=== PATIENT | male | born 1995 | race American Indian/Alaskan Native ===

== ENCOUNTER 2018-08-25 09:11 | Emergency (ER) | payer OTHER ==
[2018-08-25] MEDS ORDERED: NACL 0.9% 1000 ML 1,000 ML IV ONE (11:11)
[2018-08-25] MEDS ORDERED: ZOFRAN IV ONE (11:11)
[2018-08-25] MEDS ORDERED: TORADOL IV ONE (11:11)
--- NOTE | 2018-08-25 11:15 | Emergency Department Report ---
Blank Doc - Documentation Documentation: 23-year-old male presents to ED with reports of right-sided abdominal pain, nausea, vomiting onset this morning. Patient stays underlying cholecystectomy approximately one year ago. States he has been dealing with chronic, intermittent nausea and vomiting since then, however, the abdominal pain is new. States pain is radiating over to the left side of abdomen as well. Patient denies fever. Denies alcohol use. On exam patient is actively vomiting , has diffuse abdominal tenderness, worse in right upper and lower quadrants. We will obtain labs, CT abdomen and pelvis. Will give IV fluids, pain meds, Zofran.
[2018-08-25 11:36] LABS: Basophils # (Auto) 0.1 K/mm3 (0.0-0.1); Basophils % (Auto) 0.7 % (0.0-1.8); Eosinophils % (Auto) 0.1 % (0.0-4.3); Hematocrit 48.3 % (35.5-45.6); Hemoglobin 16.4 gm/dl (11.8-15.2); Lymphocytes % (Auto) 7.1 % (13.4-35.0); Mean Corpuscular HGB Conc 34 % (32-34); Mean Corpuscular Hemoglobin 33 pg (28-32); Mean Corpuscular Volume 98 fl (84-94); Monocytes # (Auto) 1.1 K/mm3 (0.0-0.8); Monocytes % (Auto) 7.7 % (0.0-7.3); Platelet Count 229 K/mm3 (140-440); Red Blood Count 4.91 M/mm3 (3.65-5.03); Red Cell Distribution Width 12.6 % (13.2-15.2)
[2018-08-25 11:55] LABS: Alanine Aminotransferase 14 units/L (7-56); BUN/Creatinine Ratio 16; Blood Urea Nitrogen 11 mg/dL (9-20); Calcium 9.8 mg/dL (8.4-10.2); Hemolysis Index 9
--- NOTE | 2018-08-25 12:15 | Emergency Department Report ---
ED Abdominal Pain HPI - General Chief Complaint: Abdominal Pain Stated Complaint: N/V, ABD PAIN Time Seen by Provider: 08/25/18 11:10 Source: patient Mode of arrival: Ambulatory Limitations: No Limitations - History of Present Illness Initial Comments: Patient is an 3-year-old female that was recently screened by attending Dr. Jacques will his chair complaining of right-sided abdominal pain times this morning patient also states nausea, vomiting onset this morning. Patient mentions that he had a cholecystectomy approximately one year ago. States he has been dealing with chronic, intermittent nausea and vomiting since then, however, the abdominal pain is new. States pain is radiating over to the left side of abdomen as well. Patient denies fever. Denies alcohol use. He denies fevers/chills/diarrhea/constipation/shortness of breath or chest pain Severity scale (0 -10): 10 - Related Data Previous Rx's Medication Instructions Recorded Last Taken Type HYDROcodone/APAP 5-325 [[place] 1 each PO Q6HR PRN #20 tablet 08/25/18 Unknown Rx 5/325] Metoclopramide [Reglan] 10 mg PO TID #24 tab 08/25/18 Unknown Rx Allergies Allergy/AdvReac Type Severity Reaction Status Date / Time No Known Allergies Allergy Unverified 08/25/18 09:23 ED Review of Systems ROS: Stated complaint: N/V, ABD PAIN Other details as noted in HPI Constitutional: denies: chills, fever Eyes: denies: eye pain, eye discharge, vision change ENT: denies: ear pain, throat pain Respiratory: denies: cough, shortness of breath, wheezing Cardiovascular: denies: chest pain, palpitations Endocrine: no symptoms reported Gastrointestinal: denies: abdominal pain, nausea, diarrhea Genitourinary: denies: urgency, dysuria Musculoskeletal: denies: back pain, joint swelling, arthralgia Skin: denies: rash, lesions Neurological: denies: headache, weakness, paresthesias Psychiatric: denies: anxiety, depression Hematological/Lymphatic: denies: easy bleeding, easy bruising ED Past Medical Hx - Past Medical History Previous Medical History?: No - Surgical History Hx Cholecystectomy: Yes - Social History Smoking Status: Never Smoker Substance Use Type: None - Medications Home Medications: Home Medications Medication Instructions Recorded Confirmed Last Taken Type HYDROcodone/APAP 5-325 [[place] 1 each PO Q6HR PRN #20 tablet 08/25/18 Unknown Rx 5/325] Metoclopramide [Reglan] 10 mg PO TID #24 tab 08/25/18 Unknown Rx ED Physical Exam - General Limitations: No Limitations General appearance: alert, in no apparent distress - Head Head exam: Present: atraumatic, normocephalic - Eye Eye exam: Present: normal appearance - ENT ENT exam: Present: mucous membranes moist - Neck Neck exam: Present: normal inspection - Respiratory Respiratory exam: Present: normal lung sounds bilaterally. Absent: respiratory distress, wheezes - Cardiovascular Cardiovascular Exam: Present: regular rate, normal rhythm. Absent: systolic murmur, diastolic murmur, rubs, gallop - GI/Abdominal GI/Abdominal exam: Present: soft, tenderness (to palpation of right upper and lower quadrant, left quadrant tenderness as well.), guarding, normal bowel sounds, other (obturator sign negative). Absent: distended, rebound, rigid, organomegaly, mass, bruit, pulsatile mass - Rectal Rectal exam: Present: deferred - Extremities Exam Extremities exam: Present: normal inspection - Back Exam Back exam: Present: normal inspection - Neurological Exam Neurological exam: Present: alert, oriented X3 - Psychiatric Psychiatric exam: Present: normal affect, normal mood - Skin Skin exam: Present: warm, dry, intact, normal color. Absent: rash ED Course Vital Signs 08/25/18 08/25/18 09:23 17:31 Temperature 98.6 F Pulse Rate 72 74 Respiratory 18 18 Rate Blood Pressure 135/89 Blood Pressure 137/88 [Left] O2 Sat by Pulse 100 100 Oximetry - Reevaluation(s) Reevaluation #1: Upon reevaluation of patient patient states he still had mild nausea patient states her filling little bit better but still in some pain. CT scan unremarkable, discussed with patient. Awaiting urine urinalysis results. Reglan 10 mg ordered. 08/25/18 12:56 ED Medical Decision Making - Lab Data Result diagrams: 08/25/18 11:05 08/25/18 11:05 - Radiology Data Radiology results: report reviewed, image reviewed FINDINGS: Lung bases: Normal. Liver: Normal. Biliary system: Cholecystectomy. No biliary dilatation. Pancreas: Normal. Spleen: Normal. 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 No evidence for cystic disease, mass or obstruction. Normal ureters and bladder. Adrenal glands: Normal. Aorta: Normal. Dual IVCs are noted. Intestines: Within normal limits given no oral contrast was administered. Appendix: Not identified. Pelvic viscera: Normal. Ascites: None. Adenopathy: None. Musculoskeletal: Normal. IMPRESSION: No acute process is identified in the abdomen or pelvis. Cholecystectomy. Horseshoe kidney. Duplicated IVC. Transcribed By: TTR Dictated By: YOUNG LIGHT JR, MD Electronically Authenticated By: YOUNG LIGHT JR, MD Signed Date/Time: 08/25/18 1229 - Medical Decision Making 23-year-old male presents with a gastroenteritis/chronic inflammatory bowel disease ED course: Patient received 1 L of normal saline, Toradol, Zofran. Patient reports still feeling some pain and some nausea, 2 mg of morphine and 10 mg of Reglan was administered to patient about 2hours apart Consultation with Dr. Steiner attending surgeon who saw and examined the patient. CBC, BMP, urinalysis all within normal limit. Mild wbc's. Patient does not look ill. He looks well, He is in no respiratory distress. Nausea and Vomitting resolved Discussed follow-up with Gastrologist. CT Scan Reported above. Obturator test was negative. Patient's symptoms has been going on for over a year which also rules out appendicitis. Discussed patient underwent any worsening symptoms to return to ED immediately. [place] [facility] was given as a follow-up for patient. The patient looked and felt much better prior to discharge. Stable vitals - Differential Diagnosis 1. Appendicitis 2. IBD 3. Gastroenteritis 4. Malignancy Critical care attestation.: If time is entered above; I have spent that time in minutes in the direct care of this critically ill patient, excluding procedure time. ED Disposition Clinical Impression: Gastroenteritis, Noninfectious ileitis Disposition: DC-01 TO HOME OR SELFCARE Is pt being admited?: No Does the pt Need Aspirin: No Condition: Stable Instructions: Gastroenteritis (ED), Acute Nausea and Vomiting (ED), Capsule Endoscopy (GEN) Additional Instructions: Make sure to follow up with the primary care physician as discussed. Also follow-up with book publisher Take all your medications as you've been prescribed. If you have any worsening symptoms or develop new symptoms please return to ED immediately. Prescriptions: HYDROcodone/APAP 5-325 [[place] 5/325] 1 each PO Q6HR PRN #20 tablet PRN Reason: Pain Metoclopramide [Reglan] 10 mg PO TID #24 tab Referrals: PRIMARY CARE,MD [Primary Care Provider] - 3-5 Days [facility] [Provider Group] - 3-5 Days Forms: Work/School Release Form(ED)
--- NOTE | 2018-08-25 12:31 | Cat Scan Report ---
CT ABDOMEN PELVIS WITH CONTRAST: HISTORY: abdominal pain. COMPARISON: none. TECHNIQUE: Helical CT in 1.25mm intervals following IV contrast. Sagittal and coronal reconstructions. FINDINGS: Lung bases: Normal. Liver: Normal. Biliary system: Cholecystectomy. No biliary dilatation. Pancreas: Normal. Spleen: Normal. 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 No evidence for cystic disease, mass or obstruction. Normal ureters and bladder. Adrenal glands: Normal. Aorta: Normal. Dual IVCs are noted. Intestines: Within normal limits given no oral contrast was administered. Appendix: Not identified. Pelvic viscera: Normal. Ascites: None. Adenopathy: None. Musculoskeletal: Normal. IMPRESSION: No acute process is identified in the abdomen or pelvis. Cholecystectomy. Horseshoe kidney. Duplicated IVC.
[2018-08-25] MEDS ORDERED: REGLAN IV ONE (12:55)
[2018-08-25 13:45] LABS: Amorphous Crystals,Urine Few; Bilirubin,Urine NEG (Negative); Blood,Urine NEG (Negative); Color,Urine Amber (Yellow); Mucus,Urine 3+ /HPF; Urobilinogen,Urine < 2.0 mg/dL (<2.0)
[2018-08-25 13:48] LABS: RBC,Urine < 1.0 /HPF (0.0-6.0); WBC,Urine < 1.0 /HPF (0.0-6.0)
[2018-08-25] MEDS ORDERED: MORPHINE IV ONE (16:24)
[2018-08-25 17:32] VITALS: BP 137/88
--- NOTE | 2018-08-25 17:55 | Consultation ---
History of Present Illness Consult date: 08/25/18 Reason for consult: abdominal pain Requesting physician: EVANGELISTA ELLIOTT Chief complaint: abdominal pain - History of present illness History of present illness: 23yo otherwise healthy male presents with acute onset of abdominal pain, N/V today. General Surgery asked to see patient for possible appendicitis. Pt reports that he has been having intermittent pain like this since 2017. All the attacks are similar in character, but the intensity varies. Usually, they resolve with time. After his second attack, he was seen at [facility] and his GB was removed as the presumed cause. He continued to have similar intermittent pain, N/V episodes. The entire abdomen hurts. Has had F/C/N /V. No diarrhea or constipation. Has had bloody emesis in the past, but no blood /melena from below. Has lost 15-20lbs unintentionally since 2017. No change in oral intake. No known family history of GI disorders/IBD. Past History Past Medical History: No medical history Past Surgical History: cholecystectomy (lap gisselle - 2017 [facility]) Social history: denies: smoking, alcohol abuse (occasional use), prescription drug abuse, IV drug use Family history: no significant family history Medications and Allergies Allergies Allergy/AdvReac Type Severity Reaction Status Date / Time No Known Allergies Allergy Unverified 08/25/18 09:23 Home Medications Medication Instructions Recorded Confirmed Last Taken Type HYDROcodone/APAP 5-325 [[place] 1 each PO Q6HR PRN #20 tablet 08/25/18 Unknown Rx 5/325] Metoclopramide [Reglan] 10 mg PO TID #24 tab 08/25/18 Unknown Rx Review of Systems - Constitutional weight loss (15-20lbs), fever, chills, no chronic pain - Cardiovascular chest pain, no rapid/irregular heart beat - Respiratory no cough, no shortness of breath - Gastrointestinal abdominal pain, nausea, vomiting, hematemesis (in the past), no diarrhea, no constipation, no coffee ground emesis, no BRBPR, no melena, no hematochezia, no dyspepsia/bloating - Genitourinary flank pain, no dysuria - Muskuloskeletal no low back pain - Integumentary no rash, no pruritis, no sores, no wounds Exam Vital Signs Temp Pulse Resp BP Pulse Ox 98.6 F 72 18 135/89 100 08/25/18 09:23 08/25/18 09:23 08/25/18 09:23 08/25/18 09:23 08/25/18 09:23 - General physical appearance Positive: no distress, other (does not appear sick) - Eyes Positive: normal occular movement. Negative: icteric - Respiratory Positive: normal expansion, normal respiratory effort, clear to auscultation - Cardiovascular Rhythm: regular - Abdomen Abdomen: Present: soft, tender (throughout - most in the RLQ), bowel sounds normal, guarding, surgical scars (well healed). Absent: distended, rigid, wound - Integumentary no rash, no growths, no abnormal pigmentation - Neurologic Neurologic: alert and oriented to time, place and person, motor strength and sensation are grossly intact - Psychiatric Psychiatric: appropriate mood/affect, intact judgment & insight Results - Labs 08/25/18 11:05 08/25/18 11:05 Abnormal lab results 08/25/18 08/25/18 08/25/18 Range/Units 11:05 11:05 13:29 WBC 13.9 H (4.5-11.0) K/mm3 Hgb 16.4 H (11.8-15.2) gm/dl Hct 48.3 H (35.5-45.6) % MCV 98 H (84-94) fl MCH 33 H (28-32) pg RDW 12.6 L (13.2-15.2) % Lymph % (Auto) 7.1 L (13.4-35.0) % [place] % (Auto) 7.7 H (0.0-7.3) % Lymph # 1.0 L (1.2-5.4) K/mm3 [place]icher # 1.1 H (0.0-0.8) K/mm3 Seg Neutrophils % 84.4 H (40.0-70.0) % Seg Neutrophils # 11.8 H (1.8-7.7) K/mm3 Carbon Dioxide 19 L (22-30) mmol/L Creatinine 0.7 L (0.8-1.5) mg/dL Glucose 131 H (75-100) mg/dL Total Bilirubin 1.30 H (0.1-1.2) mg/dL Urine pH 8.0 H (5.0-7.0) Ur Specific [place] 1.055 H (1.003-1.030) Diabetes panel 08/25/18 Range/Units 11:05 Sodium 140 (137-145) mmol/L Potassium 3.9 (3.6-5.0) mmol/L Chloride 102.1 (98-107) mmol/L Carbon Dioxide 19 L (22-30) mmol/L BUN 11 (9-20) mg/dL Creatinine 0.7 L (0.8-1.5) mg/dL Glucose 131 H (75-100) mg/dL Calcium 9.8 (8.4-10.2) mg/dL AST 25 (5-40) units/L ALT 14 (7-56) units/L Alkaline Phosphatase 99 (35-129) units/L Total Protein 7.9 (6.3-8.2) g/dL Albumin 5.0 (3.9-5) g/dL Calcium panel 08/25/18 Range/Units 11:05 Calcium 9.8 (8.4-10.2) mg/dL Albumin 5.0 (3.9-5) g/dL Pituitary panel 08/25/18 Range/Units 11:05 Sodium 140 (137-145) mmol/L Potassium 3.9 (3.6-5.0) mmol/L Chloride 102.1 (98-107) mmol/L Carbon Dioxide 19 L (22-30) mmol/L BUN 11 (9-20) mg/dL Creatinine 0.7 L (0.8-1.5) mg/dL Glucose 131 H (75-100) mg/dL Calcium 9.8 (8.4-10.2) mg/dL Adrenal panel 08/25/18 Range/Units 11:05 Sodium 140 (137-145) mmol/L Potassium 3.9 (3.6-5.0) mmol/L Chloride 102.1 (98-107) mmol/L Carbon Dioxide 19 L (22-30) mmol/L BUN 11 (9-20) mg/dL Creatinine 0.7 L (0.8-1.5) mg/dL Glucose 131 H (75-100) mg/dL Calcium 9.8 (8.4-10.2) mg/dL Total Bilirubin 1.30 H (0.1-1.2) mg/dL AST 25 (5-40) units/L ALT 14 (7-56) units/L Alkaline Phosphatase 99 (35-129) units/L Total Protein 7.9 (6.3-8.2) g/dL Albumin 5.0 (3.9-5) g/dL - Imaging CT scan - abdomen: report reviewed, image reviewed CT scan - pelvis: report reviewed, image reviewed Assessment and Plan - Patient Problems (1) Abdominal pain Status: Acute Qualifiers: Abdominal location: generalized Qualified Code(s): R10.84 - Generalized abdominal pain Plan to address problem: Patient stable. Does not give the clinical impression of appendicitis. I reviewed the CT in detail and did not find evidence that was suggestive of appendicitis. The only abnormality that I appreciated was some fluid filled portions of the cecum and distal ileum. His story is concerning for a more chronic process. Due to the recurrent nature of the symptoms and self-limited extent, I'm worried this could be some early component of inflammatory bowel disease. The unintentional weight loss is concerning. If his symptoms can be controlled, I would recommend that he follow up with gastroenterology for a more complete workup. I discussed my impressions and recommendations with the ED staff and patient. No surgery is needed at this time. Please call with questions. time=45min
== END 2018-08-25 17:31 | disposition home or self-care (01) ==
LOC: ED 09:11
DX: K52.9 Noninfective gastroenteritis and colitis, unspecified (principal); Z90.49 Acquired absence of other specified parts of digestive tract
CPT/HCPCS: 36415; 74177; 80053; 81001; 83690; 85025; 96361; 96374; 96375; 99284; J1885; J2270; J2405; J2765; J7030; Q9967